=== PATIENT | female | born 1985 | race Caucasian/White ===

== ENCOUNTER 2018-12-26 09:16 | Emergency (ER) | payer OTHER ==
[2018-12-26] MEDS ORDERED: NS 1,000 ML IV ONE ×2 (09:23)
[2018-12-26] MEDS ORDERED: LR 1,000 ML IV ONE (09:36)
--- NOTE | 2018-12-26 09:39 | EDPHY ---
H & P Stated Complaint: n/v 18 wks Time Seen by Provider: 12/26/18 09:23 HPI/ROS: CHIEF COMPLAINT: , vomiting HISTORY OF PRESENT ILLNESS: The patient is a at 18 weeks with a confirmed intrauterine who presents the emergency department with vomiting that began last night. She has been bothered by some slight nausea early in the 1st trimester. She denies any hematemesis or melena. She denies any acute abdominal pain. She denies any flank pain, urinary frequency or dysuria. She denies any vaginal bleeding or spotting. The patient currently feels mildly nauseous. She reportedly had multiple episodes of vomiting throughout the evening. REVIEW OF SYSTEMS: A comprehensive 10 point review of systems is otherwise negative aside from elements mentioned in the history of present illness. Source: Patient Exam Limitations: No limitations - Personal History LMP (Females 10-55): Current Tetanus Diphtheria and Acellular Pertussis (TDAP): Unsure - Medical/Surgical History Hx Asthma: No Hx Chronic Respiratory Disease: No Hx Diabetes: No Hx Cardiac Disease: No Hx Renal Disease: No Hx Cirrhosis: No Hx Alcoholism: No Hx HIV/AIDS: No Hx Splenectomy or Spleen Trauma: No Other PMH: brain tumor - Social History Smoking Status: Never smoked - Physical Exam Exam: General Appearance: Alert, no distress Eyes: Pupils equal and round no pallor or injection ENT, Mouth: Mucous membranes moist Respiratory: There are no retractions, lungs are clear to auscultation Cardiovascular: Regular rate and rhythm Gastrointestinal: Gravid uterus, no peritoneal signs Neurological: 5/5 strength all 4 extremities Skin: Warm and dry, no rashes Musculoskeletal: Neck is supple nontender Extremities: symmetrical, full range of motion Constitutional: Initial Vital Signs Temperature (C) 37 C 12/26/18 09:18 Heart Rate 91 12/26/18 09:18 Respiratory Rate 18 12/26/18 09:18 Blood Pressure 99/56 L 12/26/18 09:18 O2 Sat (%) 99 12/26/18 09:18 O2 Delivery Mode Room Air Allergies/Adverse Reactions: No Known Allergies Allergy (Unverified 12/26/18 09:17) Home Medications: Medication Instructions Recorded NK [No Known Home Meds] 12/26/18 Medical Decision Making ED Course/Re-evaluation: Patient presents the emergency department with vomiting. This is more likely to be a viral enteritis as she has not had symptoms throughout her . The patient is nontoxic well-appearing. She has a benign abdominal examination. No signs of early labor. I did discuss her ED presentation with Dr. Kenia Lehman her regular color consultant. Dr. Lehman has recommended IV fluids and Zofran. Dr. Lehman is also called in a prescription for Zofran ODT for the patient. Patient was observed in the emergency department for several hours without recurrent vomiting. I re-evaluated the patient at 12:30 p.m.: She is feeling better. No vomiting. She will be discharged home with customary aftercare instructions and return precautions. heart tones were checked in the emergency department and found to be normal at 158. Differential Diagnosis: Differential diagnosis considered includes dehydration, hyperemesis, viral enteritis - Data Points Laboratory Results: Laboratory Results 12/26/18 09:20 12/26/18 09:20 12/26/18 12/26/18 09:20 09:20 WBC 8.64 10^3/uL 10^3/uL (3.80-9.50) RBC 4.03 10^6/uL L 10^6/uL (4.18-5.33) Hgb 12.2 g/dL L g/dL (12.6-16.3) Hct 35.7 % L % (38.0-47.0) MCV 88.6 fL fL (81.5-99.8) MCH 30.3 pg pg (27.9-34.1) MCHC 34.2 g/dL g/dL (32.4-36.7) RDW 13.2 % % (11.5-15.2) Plt Count 232 10^3/uL 10^3/uL (150-400) MPV 10.3 fL fL (8.7-11.7) Neut % (Auto) 92.2 % H % (39.3-74.2) Lymph % (Auto) 4.6 % L % (15.0-45.0) [place] % (Auto) 2.0 % L % (4.5-13.0) Eos % (Auto) 0.1 % L % (0.6-7.6) Baso % (Auto) 0.2 % L % (0.3-1.7) Nucleat RBC Rel Count 0.0 % % (0.0-0.2) Absolute Neuts (auto) 7.97 10^3/uL H 10^3/uL (1.70-6.50) Absolute Lymphs (auto) 0.40 10^3/uL L 10^3/uL (1.00-3.00) Absolute Monos (auto) 0.17 10^3/uL L 10^3/uL (0.30-0.80) Absolute Eos (auto) 0.01 10^3/uL L 10^3/uL (0.03-0.40) Absolute Basos (auto) 0.02 10^3/uL 10^3/uL (0.02-0.10) Absolute Nucleated RBC 0.00 10^3/uL 10^3/uL (0-0.01) Immature Gran % 0.9 % % (0.0-1.1) Immature Gran # 0.08 10^3/uL 10^3/uL (0.00-0.10) RBC/WBC/PLT Morphology TNP Platelet Estimate ADEQUATE (ADEQ) Sodium 136 mEq/L mEq/L (135-145) Potassium 3.6 mEq/L mEq/L (3.5-5.2) Chloride 104 mEq/L mEq/L (97-110) Carbon Dioxide 22 mEq/l mEq/l (22-31) Anion Gap 10 mEq/L mEq/L (6-14) BUN 12 mg/dL mg/dL (7-23) Creatinine 0.7 mg/dL mg/dL (0.6-1.0) Estimated GFR > 60 Glucose 90 mg/dL mg/dL (70-100) Calcium 8.5 mg/dL mg/dL (8.5-10.4) Medications Given: Discontinued Medications Lactated Ringer's (Lr) 1,000 mls @ 500 mls/hr IV EDNOW ONE Stop: 12/26/18 11:35 Last Admin: 12/26/18 09:37 Dose: 1,000 mls Ondansetron HCl (Zofran) 4 mg IVP EDNOW ONE Stop: 12/26/18 09:46 Last Admin: 12/26/18 09:48 Dose: 4 mg Departure - Departure Disposition: Home, Routine, Self-Care Clinical Impression: Vomiting Condition: Good Instructions: Gastroenteritis (ED) Additional Instructions: 1. Zofran as needed for nausea. 2. Return to the ED for markedly worsening symptoms, abdominal pain, fever, dehydration, vaginal bleeding or other concerns. 3. Follow up with Dr. Lehman as scheduled. Referrals: Antonio Henderson MD [Primary Care Provider] - As per Instructions
[2018-12-26 09:43] LABS: PLATELET COUNT 232 10^3/uL (150-400)
[2018-12-26] MEDS ORDERED: ONDANSETRON 4 MG/2 ML VIAL IVP ONE (09:45)
[2018-12-26 12:46] VITALS: BP 105/56
== END 2018-12-26 12:43 | disposition home or self-care (01) ==
DX: R11.10 Vomiting, unspecified (principal); E86.9 Volume depletion, unspecified; Z3A.18 18 weeks gestation of pregnancy
CPT/HCPCS: 96374; J2405